=== PATIENT | male | born 1990 | race African-American/Black ===

== ENCOUNTER 2018-05-18 15:32 | Emergency (ER) | payer OTHER ==
[2018-05-18] MEDS ORDERED: IBUPROFEN 800 MG TABLET PO ONE (16:39)
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
[2018-05-18 18:25] VITALS: BP 128/94
== END 2018-05-18 18:25 | disposition home or self-care (01) ==
LOC: ER 15:32
PROC: 2W3CX1Z Immobilization of Right Lower Arm using Splint (ICD-10-PCS; principal; 2018-05-18)
DX: S62.314A Displaced fracture of base of fourth metacarpal bone, right hand, initial encounter for closed fracture (principal); M79.641 Pain in right hand; Y04.2XXA Assault by strike against or bumped into by another person, initial encounter; F17.210 Nicotine dependence, cigarettes, uncomplicated; J45.909 Unspecified asthma, uncomplicated
CPT/HCPCS: 99283

== ENCOUNTER → 2018-05-21 | Outpatient (CLI) | payer OTHER ==
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
== END ==
LOC: RAD 17:37
PROVIDERS: ATTEND Orthopaedic Surgery
DX: M79.641 Pain in right hand (principal); S62.314A Displaced fracture of base of fourth metacarpal bone, right hand, initial encounter for closed fracture; X58.XXXA Exposure to other specified factors, initial encounter

== ENCOUNTER 2018-05-25 14:18 | Day surgery (SDC) | payer OTHER ==
[~2018-05-25 14:18] MED LIST: CEFAZOLIN SODIUM 2 GM in DEXTROSE 5%-WATER 100 ML IV PRN; SUCCINYLCHOLINE CHLORIDE INJ 200 MG/10 ML VIAL ONE
[2018-05-25] MEDS ORDERED: CEFAZOLIN 2 GM/D5W RTU 2 GM/50 ML RTUPB IV ONE (14:31)
[2018-05-25 15:02] LABS: ANION GAP 12 (5-19); BLOOD UREA NITROGEN 14 mg/dL (7-20); CALCIUM 10.4 mg/dL (8.4-10.2); CARBON DIOXIDE 26 mmol/L (22-30); CHLORIDE 105 mmol/L (98-107); GLUCOSE 90 mg/dL (75-110); POTASSIUM 4.7 mmol/L (3.6-5.0); SODIUM 143.4 mmol/L (137-145)
[2018-05-25] MEDS ORDERED: BUPIVACAINE HCL 0.5 % INJ/PF 30 ML SDV ONE (16:38)
[2018-05-25] MEDS ORDERED: ALBUTEROL SULFATE 0.083% NEB 2.5 MG/3 ML AMPUL NEB ONE (16:42)
[2018-05-25] MEDS ORDERED: ONDANSETRON HCL INJ/PF 4 MG/2 ML SDV ONE (16:51)
[2018-05-25] MEDS ORDERED: KETOROLAC TROMETHAMINE 60 MG/2 ML SDV ONE (16:51)
[2018-05-25] MEDS ORDERED: MIDAZOLAM 2 MG/2 ML INJ ONE (16:51)
[2018-05-25] MEDS ORDERED: DEXAMETHASONE SOD PHOSPHATE INJ 4 MG/1 ML VIAL ONE (16:51)
[2018-05-25] MEDS ORDERED: FENTANYL CITRATE INJ/PF 100 MCG/2 ML AMPUL ONE (16:51)
[2018-05-25] MEDS ORDERED: PROPOFOL INJ 200 MG/20 ML VIAL IV ONE (16:52)
[2018-05-25] MEDS ORDERED: ACETAMINOPHEN 1,000 MG/100 ML RTUPB IV ONE (16:52)
[2018-05-25] MEDS ORDERED: MORPHINE SULFATE 10 MG/ML INJ IV PRN (17:35)
[2018-05-25] MEDS ORDERED: MEPERIDINE HCL/PF INJ 25 MG/1 ML DISP.SYRIN IV PRN (17:35)
[2018-05-25] MEDS ORDERED: ONDANSETRON HCL INJ/PF 4 MG/2 ML SDV IV PRN ×2 (17:35→18:31)
[2018-05-25] MEDS ORDERED: DIPHENHYDRAMINE HCL 50 MG/ML VIAL IV PRN (17:35)
[2018-05-25] MEDS ORDERED: PROMETHAZINE HCL INJ 25 MG/1 ML VIAL IV PRN ×2 (17:35)
[2018-05-25] MEDS ORDERED: FENTANYL CITRATE INJ/PF 100 MCG/2 ML AMPUL IV PRN ×3 (17:35)
[2018-05-25] MEDS ORDERED: OXYCODONE-ACETAMINOPHEN 5-325 MG TABLET PO PRN (18:31)
--- NOTE | 2018-05-25 18:38 | Operative Report ---
Operative Report DATE OF SURGERY: 05/25/18 PREOPERATIVE DIAGNOSIS: Right hand fracture dislocation fourth CMC joint/hamate intra-articular fracture POSTOPERATIVE DIAGNOSIS: Same OPERATION: Right open reduction to fixation hamate fracture, open reduction with percutaneous pinning right 4/5th CMC joint SURGEON: LIDIA SAXENA ANESTHESIA: GA COMPLICATIONS: None ESTIMATED BLOOD LOSS: Minimal PROCEDURE: Indication for above procedure: 27-year-old male injured his right hand. Patient was seen at the emergency room where x-rays demonstrated fracture. I subsequently ordered a CT scan confirming fracture of the hamate with subluxation of the fourth metacarpal. Prior to CT scan we discussed likely findings and treatment options including operative versus nonoperative intervention. All questions were answered at the office visit and preoperative holding area. Risks and benefits were explained patient verbalized understanding consented for the procedure. Procedure In Detail: Patient was seen and evaluated in the preoperative holding area. The RIGHT upper extremity was initialized and marked. Patient received 2g of Ancef IV for bacterial prophylaxis. Patient was taken back to the operative room where transferred to the operative table and placed under general anesthesia. Once they were adequately anesthetized a nonsterile tourniquet was placed on the upper extremity. A surgical team debriefing was performed ensuring all instrumentation was available, the surgical procedure was discussed with possible concerns reviewed. The upper extremity was prepped with chlorhexidine and alcohol and draped in a sterile fashion. A timeout was done identifying correct patient, procedure and extremity everyone in attendance agree with this and verbalized no concerns. The extremity was exsanguinated the tourniquet was inflated to 250 mmHg. Longitudinal skin incision was made along the fourth/fifth CMC joint. Blunt dissection performed. Branches of the dorsal ulnar sensory nerve were identified and retracted. A small peripheral veins were coagulated with bipolar cautery. Extensor tendons were identified and retracted. Dorsal interossei was elevated and a capsulotomy made. There was evidence of comminution of the hamate with a coronal split in subluxation of the fourth/ fifth CMC joint there is also a sagittal split directly along the hamate. Traction was placed on the fourth/fifth CMC joint a [place] elevator was then utilized to reduce the hamate under direct visualization of the articular surface. A 0.035 K wire was then placed x2 within the hamate maintaining reduction of the radial and ulnar fragments. While maintaining traction a 0.045 K wire was placed across the fourth/fifth metacarpal base into the second and third metacarpal bases maintaining alignment. Multiple views of the CMC joint were obtained demonstrating reduction in acceptable alignment of the articular surface. A Dhruv dorsal plate was then placed spanning the hamate. Fixation was first obtained in the ulnar aspect with the screw obtaining fixation within the hamate hook given its length. Fixation was then obtained in the smaller coronal fragment which was radial and further provide ruptures to the remaining hamate. Fixation was then completed ulnarly once again. C-arm fluoroscopy was then obtained demonstrating reduction of the hamate fracture and CMC joint subluxation. Direct visualization of the intra-articular surface demonstrated small amount of bone loss on the central aspect but no evidence of step-off. An additional 0.045 K wire was then placed across the fourth/fifth metacarpal bases into the third and second metacarpals to obtain further fixation. Wound was copiously irrigated with normal saline. Capsule and interossei was closed with interrupted 3-0 Monocryl suture. Subcutaneous tissues were closed with 3-0 Monocryl suture. Skin was closed with a running subcuticular 4-0 Monocryl reinforced with Dermabond and Steri-Strips. K wires were then bent and left outside the skin and protected with felt. 20 cc of 0.5% Marcaine without epinephrine was injected for postoperative pain control. Sponge counts, instrument counts, needle counts counts were correct. Patient was then awoken from anesthesia. Transferred from the operating room table to the operating room stretcher. There was no intraoperative complications patient tolerated procedure well stable to PACU. Postoperative plan: Patient will follow-up in the office 2 weeks postoperatively and be transition to a cast. At 6 weeks postop the pins will be removed the patient will begin range of motion exercises.
--- NOTE | 2018-05-25 18:40 | Discharge Summary ---
Discharge Summary (SDC) - Discharge Final Diagnosis: Right hamate fracture with fourth/fifth CMC dislocation Date of Surgery: 05/25/18 Treatment or Instructions: Schedule Follow Up w/ Dr. Glen White @ [facility] for Surgery to be seen in 10-14 days or as scheduled [place]: [place]: [place]: Ice and elevate Keep splint clean/dry/intact. If your fingers become numb please unwrap the Sahil wrap but leave the splint in place, if the sensation does not return within 30 minutes please return to the emergency department. May begin finger range of motion of the thumb index and middle finger Please use ibuprofen (Motrin or Advil) 600-800 mg every 8 hours as needed for pain or fever DO NOT TAKE w/ TORADOL may use once TORADOL complete. You may also use acetaminophen (Tylenol) 1000 mg every 4-6 hours as needed for pain or fever. Please be aware that many medications contain acetaminophen, do not exceed a total of 1000 mg of acetaminophen every 6 hours. If ibuprofen and acetaminophen are not sufficient for your pain you may take the Percocet/[place]. Please be aware that the Percocet/[place] does contain Tylenol. Stool softener of choice when on pain medication. Prescriptions: Ketorolac Tromethamine [Toradol 10 mg Tablet] 10 mg PO Q8HP PRN #12 tablet PRN Reason: Oxycodone HCl/Acetaminophen [Percocet 5-325 mg Tablet] 1 tab PO Q6 PRN #25 tab PRN Reason: Discharge Diet: As Tolerated Respiratory Treatments at Home: Deep Breathing/Coughing Report the Following to Your Physician Immediately: Fever over 101 Degrees, Unusual Bleeding, Redness, Swelling, Warmth, Increased Soreness
[2018-05-25] MEDS: FENTANYL CITRATE INJ/PF 100 MCG/2 ML AMPUL ONE ×2 (18:42→18:50)
--- NOTE | 2018-05-25 18:56 | RADIOLOGY REPORT (SQ) ---
EXAM DESCRIPTION: NO CHG FLUORO; HAND RIGHT 3 VIEWS COMPLETED DATE/TIME: 05/25/2018 6:39 pm; 05/25/2018 6:40 pm REASON FOR STUDY: ORIF W/ PERC PINNING COMPARISON: 05/18/2018 FLUOROSCOPY TIME: 1 minutes 17 seconds 10 Images saved to PACS LIMITATIONS: None. PROCEDURE: ORIF with percutaneous pinning. FINDINGS: Images from fluoro document the pinning of the bases of the metacarpals. Small plates are seen in the hamate with small screws. IMPRESSION: ORIF with percutaneous pinning. Refer to operative note for further information. COMMENT: PQRS 6045F: Fluoroscopy time of the procedure is documented in the report. TECHNICAL DOCUMENTATION: JOB ID: [id number] [employer]- All Rights Reserved Reading location - IP/workstation name: [email or web address]
--- NOTE | 2018-05-25 18:56 | RADIOLOGY REPORT (SQ) ---
EXAM DESCRIPTION: NO CHG FLUORO; HAND RIGHT 3 VIEWS COMPLETED DATE/TIME: 05/25/2018 6:39 pm; 05/25/2018 6:40 pm REASON FOR STUDY: ORIF W/ PERC PINNING COMPARISON: 05/18/2018 FLUOROSCOPY TIME: 1 minutes 17 seconds 10 Images saved to PACS LIMITATIONS: None. PROCEDURE: ORIF with percutaneous pinning. FINDINGS: Images from fluoro document the pinning of the bases of the metacarpals. Small plates are seen in the hamate with small screws. IMPRESSION: ORIF with percutaneous pinning. Refer to operative note for further information. COMMENT: PQRS 6045F: Fluoroscopy time of the procedure is documented in the report. TECHNICAL DOCUMENTATION: JOB ID: [id number] [employer]- All Rights Reserved Reading location - IP/workstation name: [email or web address]
[2018-05-25 22:36] VITALS: BP 139/87
== END 2018-05-25 21:15 | disposition home or self-care (01) ==
LOC: OROUT 14:18 → 4S 19:51 → OROUT 21:15
PROVIDERS: ATTEND Orthopaedic Surgery
DX: S62.141A Displaced fracture of body of hamate [unciform] bone, right wrist, initial encounter for closed fracture (principal); S63.054A Dislocation of other carpometacarpal joint of right hand, initial encounter; X58.XXXA Exposure to other specified factors, initial encounter
CPT/HCPCS: 36415; 80048; 73130; 26746; 26608; C1713; J2250; J3490; J1100; J1885; J3010; J0330; J2405; J2704; J0690; J0131; 01830

== ENCOUNTER 2019-12-25 00:11 | Emergency (ER) | payer SELFPAY ==
[2019-12-25] MEDS ORDERED: OXYCODONE-ACETAMINOPHEN 5-325 MG TABLET PO ONE (04:27)
--- NOTE | 2019-12-25 04:29 | ER Document Report ---
ED Medical Screen (RME) - General Chief Complaint: Abscess Stated Complaint: POSSIBLE BOIL ON LEFT BUTT CHEEK Time Seen by Provider: 12/25/19 04:24 Mode of Arrival: Ambulatory Information source: Patient Notes: 28-year-old male presented to ED for an abscess to the right buttocks close to the anus. He is alert oriented respirations regular and unlabored speaking in full sentences. He stated the pain started about Monday. He states the pain is 4 out of 5 pressure throbbing. I have greeted and performed a rapid initial assessment of this patient. A comprehensive ED assessment and evaluation of the patient, analysis of test results and completion of medical decision making process will be conducted by an additional ED providers. TRAVEL OUTSIDE OF THE [place] IN LAST 30 DAYS: No - Related Data Allergies/Adverse Reactions: No Known Allergies Allergy (Verified 12/25/19 00:59) Past Medical History - Social History Frequency of alcohol use: None Drug Abuse: None - Past Medical History Cardiac Medical History: Denies: Hx Coronary Artery Disease, Hx Heart Attack, Hx Hypertension Pulmonary Medical History: Reports: Hx Asthma - hx has a child Denies: Hx Bronchitis, Hx COPD, Hx Pneumonia Neurological Medical History: Denies: Hx Cerebrovascular Accident, Hx Seizures Renal/ Medical History: Denies: Hx Peritoneal Dialysis Musculoskeltal Medical History: Denies Hx Arthritis, Reports Hx Musculoskeletal Trauma Psychiatric Medical History: Denies: Hx Depression Traumatic Medical History: Reports: Hx Fractures - Left great toe Past Surgical History: Reports: Hx Orthopedic Surgery - L great toe - Immunizations Hx Diphtheria, Pertussis, Tetanus Vaccination: No Physical Exam - Vital signs Vitals: Temp Pulse Resp BP Pulse Ox 98.5 F 73 20 123/77 98 12/25/19 00:37 12/25/19 00:37 12/25/19 00:37 12/25/19 00:37 12/25/19 00:37 Course - Vital Signs Vital signs: Temp Pulse Resp BP Pulse Ox 98.5 F 73 20 123/77 98 12/25/19 00:59 12/25/19 00:37 12/25/19 00:37 12/25/19 00:37 12/25/19 00:37
[2019-12-25] MEDS ORDERED: LIDOCAINE 1% INJ-PF (10 MG/ML) 30 ML SDV INJ ONE (07:00)
--- NOTE | 2019-12-25 07:56 | ER Document Report ---
ED General - General Chief Complaint: Abscess Stated Complaint: POSSIBLE BOIL ON LEFT BUTT CHEEK Time Seen by Provider: 12/25/19 04:24 Mode of Arrival: Ambulatory Information source: Patient TRAVEL OUTSIDE OF THE [place] IN LAST 30 DAYS: No - HPI Notes: Patient presents with pain to the right butt cheek. He states is been present for 3 to 4 days. It is constant. It is worse with touch and better if left alone. He states it feels similar to abscesses he has had in the past. It does radiate up his right butt cheek. It is a constant pain is moderate to severe and sharp. No fevers. - Related Data Allergies/Adverse Reactions: No Known Allergies Allergy (Verified 12/25/19 00:59) Past Medical History - General Information source: Patient - Social History Smoking Status: Current Every Day Smoker Frequency of alcohol use: None Drug Abuse: None Family History: Hypertension, Other - Motherabscesses. No family history of colorectal cancer. Patient has homicidal ideation: No - Past Medical History Cardiac Medical History: Denies: Hx Coronary Artery Disease, Hx Heart Attack, Hx Hypertension Pulmonary Medical History: Reports: Hx Asthma - hx has a child Denies: Hx Bronchitis, Hx COPD, Hx Pneumonia Neurological Medical History: Denies: Hx Cerebrovascular Accident, Hx Seizures Renal/ Medical History: Denies: Hx Peritoneal Dialysis Musculoskeletal Medical History: Denies Hx Arthritis, Reports Hx Musculoskeletal Trauma Psychiatric Medical History: Denies: Hx Depression Traumatic Medical History: Reports: Hx Fractures - Left great toe Past Surgical History: Reports: Hx Orthopedic Surgery - L great toe - Immunizations Hx Diphtheria, Pertussis, Tetanus Vaccination: No Review of Systems - Review of Systems Constitutional: denies: Chills, Fever Cardiovascular: denies: Chest pain, Palpitations Respiratory: denies: Cough, Short of breath -: Yes All other systems reviewed and negative Physical Exam - Vital signs Vitals: Temp Pulse Resp BP Pulse Ox 98.5 F 73 20 123/77 98 12/25/19 00:37 12/25/19 00:37 12/25/19 00:37 12/25/19 00:37 12/25/19 00:37 Interpretation: Normal - General General appearance: Appears well, Alert - HEENT Head: Normocephalic, Atraumatic Eyes: Normal Pupils: PERRL - Respiratory Respiratory status: No respiratory distress Chest status: Nontender Breath sounds: Normal Chest palpation: Normal - Cardiovascular Rhythm: Regular Heart sounds: Normal auscultation Murmur: No - Abdominal Inspection: Normal Distension: No distension Bowel sounds: Normal Tenderness: Nontender Organomegaly: No organomegaly - Back Back: Normal, Nontender - Extremities General upper extremity: Normal inspection, Nontender, Normal color, Normal ROM, Normal temperature General lower extremity: Normal inspection, Nontender, Normal color, Normal ROM, Normal temperature, Normal weight bearing. No: Natalya's sign - Neurological Neuro grossly intact: Yes Cognition: Normal Orientation: AAOx4 Kamla Coma Scale Eye Opening: Spontaneous Doucette Coma Scale Verbal: Oriented Kamla Coma Scale Motor: Obeys Commands Doucette Coma Scale Total: 15 Speech: Normal Motor strength normal: LUE, RUE, LLE, RLE Sensory: Normal - Psychological Associated symptoms: Normal affect, Normal mood - Skin Skin Temperature: Warm Skin Moisture: Dry Skin Color: Other - Normal except for right butt cheek on the inner fold. He has tenderness and fluctuance this area consistent with an abscess. It is slightly erythematous. It does not extend into the anal area Course - Vital Signs Vital signs: Temp Pulse Resp BP Pulse Ox 98.5 F 62 18 140/84 H 100 12/25/19 04:40 12/25/19 04:40 12/25/19 04:40 12/25/19 04:40 12/25/19 04:40 Procedures - Incision and Drainage Right Buttock Time completed: 07:54 Type: Simple Anesthetic type: 1% Lidocaine mL's of anesthetic: 2 Blade size: 11 I&D procedure: Iodoform packing placed, Sterile dressing applied Incision Method: Incision made by scalpel Amount/type of drainage: Copious amounts of pus and blood with some small clots Discharge - Discharge Clinical Impression: Abscess of buttock, right Condition: Stable Disposition: HOME, SELF-CARE Instructions: Abscess ([facility]), Oral Narcotic Medication ([facility]), Post Incision and Drainage Additional Instructions: Please call a surgeon as soon as possible to arrange follow-up Please return here in two days for a recheck Prescriptions: Amoxicillin/Potassium Clav [Augmentin 875-125 Tablet] 1 tab PO BID 5 Days #10 tablet Oxycodone HCl/Acetaminophen [Percocet 5-325 mg Tablet] 1 tab PO Q6 3 Days #12 tablet Forms: Return to Work Referrals: ALEKSANDER BRADFORD MD [ACTIVE STAFF] - Follow up in 3-5 days
[2019-12-25 08:14] VITALS: BP 112/80
== END 2019-12-25 08:13 | disposition home or self-care (01) ==
LOC: ER 00:11
DX: L02.31 Cutaneous abscess of buttock (principal); F17.200 Nicotine dependence, unspecified, uncomplicated
CPT/HCPCS: 99283; 10060; J3490